=== PATIENT | female | born 1955 | race Asian ===

== ENCOUNTER 2017-05-03 22:50 | Emergency (ER) | payer MEDICAID ==
[~2017-05-03] VITALS: Ht 152.4 cm; Wt 72.6 kg
[2017-05-03 23:38] LABS: Basophils # (auto) 0.1 uL; Basophils % (auto) 0.8 % (0.0-2.0); Eosinophils # (auto) 0.2 uL; Eosinophils % (auto) 1.9 % (0.0-7.0); Hematocrit 45.7 % (36.0-46.0); Hemoglobin 14.9 g/dL (12.2-16.2); Lymphocytes # (auto) 3.3 uL; Lymphocytes % (auto) 36.2 % (10.0-50.0); Mean Corpuscular Hemoglobin 27.6 pg (28.0-32.0); Mean Corpuscular Hgb Conc. 32.7 g/dL (32.0-36.0); Mean Corpuscular Volume 84.3 fL (80.0-100.0); Mean Platelet Volume 8.7 fL (7.4-10.4); Monocytes # (auto) 0.7 uL; Monocytes % (auto) 8.1 % (0.0-12.0); Neutrophils # (auto) 4.9 uL; Platelet Count (auto) 299 10^3/uL (140-450); Red Cell Distribution Width 13.1 % (11.6-16.0); White Blood Cell 9.2 10^3/uL (4.4-10.8)
[2017-05-03 23:53] LABS: Albumin 3.5 g/dL (3.4-5.0); BUN/Creatinine Ratio 24.1; Calcium 8.5 mg/dL (8.5-10.1); INR 0.95 (0.9-1.15); Partial Thromboplastin Time 25.3 sec (22.64-33.71); Potassium 3.3 mmol/L (3.5-5.1); Prothrombin Time 10.3 sec (9.37-12.3)
[2017-05-03 23:59] LABS: Bilirubin, Total 0.3 mg/dL (0.2-1.0); Total Protein 7.7 g/dL (6.4-8.2)
[2017-05-04 00:04] LABS: B-Type Natriuretic Peptide 19.24 pg/mL (0-100)
[2017-05-04 00:10] LABS: Temperature: 24.1 C (20.0-25.0)
[2017-05-04] MEDS ORDERED: HYDROcodone-ACET 5/325MG TAB PO ONE (00:15)
[2017-05-04] MEDS ORDERED: ASPirin 81 mg TAB PO ONE (01:00)
[2017-05-04 01:54] VITALS: BP 125/83
== END 2017-05-04 02:17 | disposition short-term general hospital (02) ==
LOC: ER 22:50
DX: I63.9 Cerebral infarction, unspecified (principal); C71.9 Malignant neoplasm of brain, unspecified; E11.9 Type 2 diabetes mellitus without complications; I10 Essential (primary) hypertension
CPT/HCPCS: 36415; 70450; 71010; 80053; 83880; 84484; 85025; 85610; 85730; 93005

== ENCOUNTER 2022-01-08 03:36 | Emergency (ER) | payer MEDICARE, MEDICAID, OTHER ==
[~2022-01-08] VITALS: Ht 144.8 cm; Wt 54.4 kg
[2022-01-08] MEDS ORDERED: ACETAMINOPHEN 325 MG TAB PO ONE (07:15)
[2022-01-08] MEDS ORDERED: CYCL-837 PO (07:47)
[2022-01-08] MEDS ORDERED: ACET-1158 PO (07:47)
[2022-01-08 08:08] VITALS: BP 136/84
[2022-01-08] MEDS ORDERED: DOXY-332 PO (09:41)
== END 2022-01-08 11:14 | disposition home or self-care (01) ==
LOC: EDSEX 03:36 → EDBD 03:36 → ER 03:36
DX: S39.012A Strain of muscle, fascia and tendon of lower back, initial encounter (principal); S20.219A Contusion of unspecified front wall of thorax, initial encounter; J18.9 Pneumonia, unspecified organism; I10 Essential (primary) hypertension; E11.9 Type 2 diabetes mellitus without complications; Z86.73 Personal history of transient ischemic attack (TIA), and cerebral infarction without residual deficits; Z79.2 Long term (current) use of antibiotics; Z79.899 Other long term (current) drug therapy; V49.9XXA Car occupant (driver) (passenger) injured in unspecified traffic accident, initial encounter; Y93.89 Activity, other specified; Y92.410 Unspecified street and highway as the place of occurrence of the external cause; Y99.8 Other external cause status
CPT/HCPCS: 71046; 72100